=== PATIENT | female | born 1985 | race Hispanic/Latino ===

== ENCOUNTER 2023-08-25 16:10 | Inpatient (IN) | payer MEDICAID, OTHER ==
[2023-08-25 17:19] VITALS: BMI 29.2
[2023-08-25] MEDS: Morphine 2 MG/ML VIAL SLOW IVP PRN (18:18)
[2023-08-25] MEDS: Lactated Ringer's 1,000 ML IV SCH (18:26)
[2023-08-25] MEDS ORDERED: Acetaminophen 325 MG TAB PO PRN (18:56)
[2023-08-25 21:04] LABS: #Basophils 0.04 10x3/uL (0.0-0.2); #Eosinphils 0.07 10x3/uL (0.0-0.5); #Monocytes 0.74 10x3/uL (0.0-1.1); #Neutrophils 9.28 10x3/uL (1.5-8.4); %Basophils 0.3 % (0.0-2.0); %Eosinophils 0.6 % (0.0-6.0); %Lymphocytes 13.1 % (18.0-47.0); %Monocytes 6.3 % (0.0-10.0); %Neutrophils 79.4 % (40.0-75.0); Hemoglobin 12.5 g/dL (12.0-15.5); Mean Corpuscular HGB CONC 33.8 g/dL (32.0-36.0); Mean Corpuscular Hemoglobin 29.2 pg (27.0-33.0); Mean Corpuscular Volume 86.4 fl (81.6-98.3); Mean Platelet Volume 11.2 fl (7.4-10.4); Platelet Count 316 10x3/uL (150-450); RBC Distribution Width 14.6 % (11.5-14.5); Red Blood Cell (RBC) Count 4.28 10x6/uL (3.90-5.03); White Blood Cell (WBC) Count 11.7 10x3/uL (3.5-10.5)
[2023-08-25] MEDS: Acetaminophen 325 MG TAB PO SCH (21:06)
[2023-08-25] MEDS: Milk Of Magnesia 30 ML UDCUP PO SCH (21:08)
[2023-08-25 21:12] LABS: Lactic Acid 2.1 mmol/L (0.5-2.2)
[2023-08-25 21:17] LABS: ALT (SGPT) 20 U/L (8-55); AST (SGOT) 18 U/L (5-34); Albumin 3.6 g/dL (3.5-5.0); Alkaline Phosphatase 81 U/L (40-110); Anion Gap 16 mmol/L (10-20); BUN (Urea Nitrogen) 5 mg/dL (7.0-18.7); Bilirubin, Total 0.6 mg/dL (0.2-1.2); Calc. Creatinine Clearance 101 mL/min (70-130); Calcium 8.4 mg/dL (7.8-10.44); Carbon Dioxide 21 mmol/L (22-29); Chloride 103 mmol/L (98-107); Estimated GFR 98; Globulin 3.5 g/dL (2.4-3.5); Glucose 116 mg/dL (70-105); Potassium 3.5 mmol/L (3.5-5.1); Protein, Total 7.1 g/dL (6.0-8.3); Sodium 136 mmol/L (136-145)
[2023-08-25] MEDS ORDERED: SUCCINYLCHOLINE/SOD CL,ISO/PF 200 MG/10 ML SYRINGE FS ONE ×2 (23:31)
[2023-08-25] MEDS ORDERED: Rocuronium Bromide 10 MG/ML (10ML VIAL) ONE (23:31)
[2023-08-25] MEDS ORDERED: Lidocaine 1% PF 5 ML VIAL ONE (23:31)
[2023-08-25] MEDS ORDERED: PROPOFOL 20 ML ONE (23:31)
[2023-08-25] MEDS ORDERED: fentaNYL 50 mcg/mL 1 mL Vial ONE (23:31)
[2023-08-25] MEDS ORDERED: Bupivacaine PF 0.5% 30 ML VIAL ONE (23:35)
[2023-08-25] MEDS ORDERED: EPINEPHrine 1 MG/ML VIAL ONE (23:37)
[2023-08-25] MEDS ORDERED: Ondansetron PF 4 MG/2 ML Vial ONE (23:37)
[2023-08-25] MEDS ORDERED: Dexamethasone 4 mg/ml Vial ONE (23:37)
[2023-08-26] MEDS: metroNIDAZOLE 500 MG in Premix 1 BAG IVPB SCH ×2 (00:01→04:35)
[2023-08-26] MEDS ORDERED: Ketorolac Tromethamine 30 MG (1 mL) VIAL ONE (00:28)
[2023-08-26] MEDS ORDERED: PHENYLEPHRINE-NS 100 MCG/ML 10 ML SYRINGE ONE (00:38)
[2023-08-26] MEDS ORDERED: Glycopyrrolate 0.2 MG/ML 5 ML SYRINGE ONE (01:55)
[2023-08-26] MEDS ORDERED: fentaNYL 50 mcg/mL 1 mL Vial ONE (02:37)
[2023-08-26] MEDS ORDERED: Non-Formulary Medication 1 EACH PO PRN (02:42)
[2023-08-26] MEDS ORDERED: Promethazine HCl 12.5 MG in Sodium Chloride 0.9% 50 ML IVPB PRN (02:43)
[2023-08-26] MEDS ORDERED: Meperidine HCl/PF 25 MG/ML VIAL SLOW IVP PRN (02:45)
[2023-08-26] MEDS ORDERED: HYDROmorphone 2 MG/ML VIAL SLOW IVP PRN (02:45)
[2023-08-26] MEDS: cefOXitin 2 GM in Sodium Chloride 0.9% 100 ML IVPB SCH (04:32)
[2023-08-26] MEDS: Lactated Ringer's 1,000 ML IV SCH (04:33)
[2023-08-26] MEDS ORDERED: Doxycycline 100 MG in Sodium Chloride 0.9% 100 ML IVPB SCH (09:00)
[2023-08-26] MEDS ORDERED: HYDROcodone/Acetaminophen 5/325 mg Tablet PO PRN (13:09)
[2023-08-26] MEDS: HYDROcodone/Acetaminophen 5/325 mg Tablet PO PRN (13:24)
[2023-08-27 04:24] LABS: Hematocrit 32.1 % (34.9-44.5); Hemoglobin 10.3 g/dL (12.0-15.5); Mean Corpuscular HGB CONC 32.1 g/dL (32.0-36.0); Mean Corpuscular Hemoglobin 27.9 pg (27.0-33.0); Mean Platelet Volume 11.1 fl (7.4-10.4); Platelet Count 286 10x3/uL (150-450); RBC Distribution Width 14.6 % (11.5-14.5); Red Blood Cell (RBC) Count 3.69 10x6/uL (3.90-5.03); White Blood Cell (WBC) Count 8.6 10x3/uL (3.5-10.5)
[2023-08-27] MEDS: Ondansetron PF 4 MG/2 ML Vial IVP PRN (08:41)
[2023-08-27] MEDS: Polyethylene Glycol 3350 17 GM Packet PO SCH (13:39)
[2023-08-27 16:47] VITALS: BP 126/82; TEMP 98.8
[2023-08-28] MEDS ORDERED: Polyethylene Glycol 3350 17 GM Packet PO SCH (09:00)
== END 2023-08-27 18:10 | disposition home or self-care (01) | DRG 750 ==
LOC: CSHPP 16:10
PROVIDERS: ADMIT Obstetrics & Gynecology; ATTEND Obstetrics & Gynecology
PROC: 0DBW4ZZ Excision of Peritoneum, Percutaneous Endoscopic Approach (ICD-10-PCS; principal; 2023-08-25)
DX: N80.9 Endometriosis, unspecified (principal); K59.09 Other constipation; F32.A Depression, unspecified; E78.00 Pure hypercholesterolemia, unspecified; Z83.3 Family history of diabetes mellitus; Z82.49 Family history of ischemic heart disease and other diseases of the circulatory system; D64.9 Anemia, unspecified; I10 Essential (primary) hypertension; Z79.899 Other long term (current) drug therapy; R19.00 Intra-abdominal and pelvic swelling, mass and lump, unspecified site; N73.9 Female pelvic inflammatory disease, unspecified; R00.0 Tachycardia, unspecified
CPT/HCPCS: 36415; 74018; 76856; 83605; 85027; 86141; 87040; 87480; 87491; 87510; 87591; 87660; 88305; 88341; 88342; 96361; 96365; 96367; 96375; 96376; J0171; J0665; J0694; J0696; J1100; J1885; J2270; J2272; J2405; J2704; J3010; J3490; J7120